=== PATIENT | female | born 1990 | race Caucasian/White ===

== ENCOUNTER 2019-11-29 15:48 | Emergency (ER) | payer OTHER ==
[~2019-11-29] VITALS: Ht 154.9 cm; Wt 77.2 kg
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
[2019-11-29 16:54] LABS: BASOPHILS % (AUTO) 1 % (0-10); EOSINOPHILS % (AUTO) 3 % (0-10); HEMATOCRIT 38 % (35-52); LYMPHOCYTES % (AUTO) 19 % (12-44); MEAN CORPUSCULAR HEMOGLOBIN 31 PG (25-34); MEAN CORPUSCULAR HGB CONC 35 G/DL (32-36); MEAN CORPUSCULAR VOLUME 90 FL (80-99); MEAN PLATELET VOLUME 10.1 FL (7.4-10.4); MONOCYTES % (AUTO) 6 % (0-12); PLATELET COUNT 184 10^3/uL (130-400); WHITE BLOOD COUNT 6.2 10^3/uL (4.3-11.0)
[2019-11-29 16:55] LABS: EOSINOPHILS # (AUTO) 0.2 10^3/uL (0.0-0.3); LYMPHOCYTES # (AUTO) 1.2 X 10^3 (1.0-4.0); MONOCYTES # (AUTO) 0.4 X 10^3 (0.0-1.0); NEUTROPHILS # (AUTO) 4.5 X 10^3 (1.8-7.8); NEUTROPHILS % (AUTO) 71 % (42-75)
[2019-11-29] MEDS ORDERED: fentaNYL INJECTION 100 MCG/2 ML AMP IVP STA (17:12)
[2019-11-29 17:15] LABS: BUN/CREATININE RATIO 12; CALCIUM 9.2 MG/DL (8.5-10.1); CARBON DIOXIDE 22 MMOL/L (21-32); CHLORIDE 104 MMOL/L (98-107); CREATININE SERUM 0.83 MG/DL (0.60-1.30); GFR ESTIMATED > 60; GLUCOSE 93 MG/DL (70-105); POTASSIUM 3.7 MMOL/L (3.6-5.0); SODIUM 137 MMOL/L (135-145)
[2019-11-29 17:16] LABS: ALANINE AMINOTRANSFERASE 16 U/L (0-55); ALKALINE PHOSPHATASE 61 U/L (40-136); BILIRUBIN,TOTAL 0.4 MG/DL (0.1-1.0); TOTAL PROTEIN 6.5 GM/DL (6.4-8.2)
[2019-11-29 17:17] LABS: BACTERIA,URINE NEGATIVE /HPF; BILIRUBIN,URINE NEGATIVE (NEGATIVE); CLARITY,URINE CLEAR; COLOR,URINE DARK YELLOW; GLUCOSE, URINE (UA) NEGATIVE (NEGATIVE); KETONES,URINE NEGATIVE (NEGATIVE); LEUKOCYTE ESTERASE ,URINE TRACE (NEGATIVE); NITRITE,URINE NEGATIVE (NEGATIVE); PROTEIN,URINE TRACE (NEGATIVE)
[2019-11-29 17:19] LABS: PROTHROMBIN TIME PATIENT 13.2 SEC (12.2-14.7)
[2019-11-29] MEDS ORDERED: NS 100 ML (IVPB) BAG IV ONE (18:45)
[2019-11-29] MEDS ORDERED: HOLD METFORMIN - RECEIVED CONTRAST 20 ML VIAL IV SCH (18:45)
[2019-11-29] MEDS ORDERED: CATHETER FLUSH 10 ML SYR IV PRN (18:45)
[2019-11-29] MEDS ORDERED: IOHEXOL 350 MG/ML 100 ML (OMNIPAQUE 350) VIAL IV ONE (18:45)
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
[2019-11-29] MEDS ORDERED: KETOROLAC 30 MG/ML VIAL IVP STA (19:41)
[2019-11-29 20:02] VITALS: BP 97/61
== END 2019-11-29 20:02 | disposition home or self-care (01) ==
LOC: ER FS 15:52
DX: S93.491A Sprain of other ligament of right ankle, initial encounter (principal); S20.211A Contusion of right front wall of thorax, initial encounter; R40.2410 Glasgow coma scale score 13-15, unspecified time; V49.9XXA Car occupant (driver) (passenger) injured in unspecified traffic accident, initial encounter
CPT/HCPCS: 36415; 71260; 73590; 73610; 73630; 74177; 80053; 81000; 84703; 85025; 85610; 85730

== ENCOUNTER 2021-01-31 06:21 | Outpatient (CLI) | payer OTHER ==
[~2021-01-31] VITALS: Ht 155 cm; Wt 61.8 kg
== END 2021-01-31 11:35 | disposition home or self-care (01) ==
LOC: PREOP 06:21
PROVIDERS: ATTEND Surgery
DX: Z01.818 Encounter for other preprocedural examination (principal)

== ENCOUNTER 2021-02-06 09:38 | Day surgery (SDC) | payer OTHER ==
[~2021-02-06] VITALS: Ht 154.9 cm; Wt 61.8 kg
[2021-02-06] MEDS ORDERED: LACTATED RINGERS 1,000 ML IV ONE (10:00)
[2021-02-06] MEDS ORDERED: LACTATED RINGERS 1,000 ML IV STA (10:01)
--- NOTE | 2021-02-06 10:07 | Progress Note-Pre Operative ---
Pre-Operative Progress Note H&P Reviewed The H&P was reviewed, patient examined and no changes noted. Time Seen by Provider: 10:04 Date H&P Reviewed: Feb 06, 2021 Time H&P Reviewed: 10:04 Pre-Operative Diagnosis: Epigastric pain EMMY STEELE DO Feb 06, 2021 10:07
[2021-02-06 10:13] VITALS: BP 110/75
[2021-02-06] MEDS ORDERED: HURRICAINE EXT TUBE (BENZOCAINE) XX PRN (10:15)
[2021-02-06] MEDS ORDERED: proPOfol 200 MG/20 ML (DIPRIVAN) VIAL IV ONE (11:22)
[2021-02-06] MEDS ORDERED: MIDAZOLAM 2 MG/2 ML (VERSED) VIAL ONE (11:22)
--- NOTE | 2021-02-06 11:37 | Progress Note-Post Operative ---
Post-Operative Progess Note Surgeon (s)/Analyst Market Intelligence (s) Surgeon EMMY STEELE DO Analyst Market Intelligence: none Pre-Operative Diagnosis Epigastric pain Post-Operative Diagnosis Gastritis Hiatal hernia Procedure & Operative Findings Date of Procedure 02/06/21 Procedure Performed/Findings EGD with bx PROCEDURE NOTE: After informed consent was obtained, the patient was brought to the endoscopy suite, placed in bed in left lateral decubitus position. She was administered IV sedation by the TREE WORKER who then monitored vitals the entire time, heart rate, blood pressure and pulse ox and the scope was inserted down the mouth through the esophagus into the stomach. On the way down, noted some mild esophagitis, took a picture, pushed into the stomach, pushed past the antrum into the duodenum. Duodenum looked good. Pulled back and did a biopsy of antrum, then retroflexed the scope, saw hiatal hernia, took a picture of this and then pulled the scope into the GE junction, took another picture of the hiatal hernia and then did a biopsy of the GE junction. Pushed the scope back into the stomach, suctioned all the air out of the stomach. At this point pulled the scope up the esophagus and out the mouth. The patient tolerated the procedure, and she recovered in endoscopy suite. Anesthesia Type IV sedation by Anesthesia Estimated Blood Loss Estimated blood loss (mL): scant Specimens/Packing Specimens Removed antral bx body of stomach bx GE jxn EMMY STEELE DO Feb 06, 2021 11:37
--- NOTE | 2021-02-06 11:39 | Endoscopy Discharge Instruct ---
Endo Procedure/Findings Findings 1.: Gastritis 2.: Hiatal Hernia Discharge Instructions - Activity: You might feel a little sleepy until tomorrow. This is due to the medicine you received to relax you. Until tomorrow, you should: NOT drive a car, operate machinery or power tools. NOT drink any alcoholic beverages. NOT make any important decisions or sign importortant papers. Do not return to work until tomorrow, unless otherwise instructed. Resume previous activities tomorrow. Diet: Start by taking liquids. If you tolerate liquids, advance to solid food. 1.: EGD in 1 year Notify Physician - If you experience excessive bleeding, unusual abdominal pain, fever, or chest pain, contact your doctor immediately. EMMY STEELE DO Feb 06, 2021 11:39
[2021-02-06 11:43] VITALS: BP 96/59
[2021-02-06 11:48] VITALS: BP 98/62
[2021-02-06 11:50] VITALS: BP 100/67
[2021-02-06 12:20] VITALS: BP 100/71
[2021-02-06 12:35] VITALS: BP 100/71
--- NOTE | 2021-02-06 13:11 | Anesthesia-General Post-Op ---
MAC Patient Condition Mental Status/LOC: Same as Preop Cardiovascular: Satisfactory Nausea/Vomiting: Absent Respiratory: Satisfactory Pain: Controlled Complications: Absent Post Op Complications Complications None Follow Up Care/Instructions Patient Instructions None needed. Anesthesiology Discharge Order Discharge Order Patient was doing well after the procedure with no complaints, stable vital signs, no apparent adverse anesthesia problems. SD FRANCISCO DO Feb 06, 2021 13:11
== END 2021-02-06 12:35 | disposition home or self-care (01) ==
LOC: ENDO 09:38
PROVIDERS: ATTEND Surgery
DX: K29.50 Unspecified chronic gastritis without bleeding (principal); K20.90 Esophagitis, unspecified without bleeding; K44.9 Diaphragmatic hernia without obstruction or gangrene; R63.4 Abnormal weight loss; Z87.891 Personal history of nicotine dependence
CPT/HCPCS: 84703; 88305